=== PATIENT | female | born 1970 | race Caucasian/White ===

== ENCOUNTER 2018-03-28 14:25 | Outpatient (REF) | payer BC, SELFPAY ==
--- NOTE | 2018-03-28 14:00 | PAPFT_PTH ---
PATIENT: Pascale Yost LOC: [facility] U#:[id number] AGE/SX: 47/F ROOM: RE03/28/[address]: PRISCILLA Sellers : 1970 BED: DIS: 03/28/2018 SPEC #: [id number] RECD: 03/28/18 18:18 STATUS: ZULY REQ #: [id number] DARWIN: 03/28/18 14:[address]: Mariia Reina DEPT: [facility]LY [facility], [facility] Cytology RECD BY: Taniya Kovacs ENTERED: 03/28/18 18:18 SP TYPE: PAPFT OTHR DR: Marco Lazcano Tissues: 1 - CX/ENDOCX FOR PAP SMEARS Procedures: PAP THIN PREP/[facility] Screening HPV DNA PROBE Comments: [id number]
== END 2018-03-28 14:45 ==
LOC: LBN 14:25
PROVIDERS: PCP Internal Medicine; Visit Provider Nurse Practitioner Family
DX: Z12.4 Encounter for screening for malignant neoplasm of cervix (principal); Z11.51 Encounter for screening for human papillomavirus (HPV)
CPT/HCPCS: 88142; 87624

== ENCOUNTER 2019-02-10 18:11 | Outpatient (REF) | payer BC, SELFPAY ==
[2019-02-10 22:07] LABS: Calculated LDL 126 mg/dL; Cholesterol 224 mg/dL (50-200); HDL Cholesterol 86 mg/dL (40-60); Triglyceride 64 mg/dL (30-150)
== END 2019-02-10 18:31 ==
LOC: NCHCN 18:11
PROVIDERS: PCP Internal Medicine; Visit Provider Registered Nurse
DX: Z13.220 Encounter for screening for lipoid disorders (principal)
CPT/HCPCS: 80061

== ENCOUNTER 2019-12-24 12:08 | Outpatient (REF) | payer SELFPAY ==
[2019-12-24 20:23] LABS: Abs Immature Grans 0.02 10^3/uL (0.0-0.06); Absolute Basophil Count 0.04 10^3/uL (0.0-0.2); Absolute Eosinophil Count 0.19 10^3/uL (0.0-0.7); Absolute Lymphocyte Count 2.48 10^3/uL (1.2-3.4); Absolute Monocyte Count 0.39 10^3/uL (0.1-0.8); Absolute Neutrophil Count 4.21 10^3/uL (1.2-6.7); Basophils % 0.5; Eosinophils % 2.6; HCT 41.9 % (36.0-46.0); HGB 13.4 g/dL (11.2-15.7); Immature Grans % 0.3; Lymphocytes % 33.8; MCH 30.7 pg (27.0-33.0); MCV 95.9 fL (80-95); MPV 10.8 fL (8.0-11.0); Monocytes % 5.3; Neutrophils % 57.5; Nucleated RBC 0 %; Platelet Count 199 10^3/uL (130-400); RBC 4.37 10^6/uL (3.93-5.22); RDW 12.5 % (11.7-14.6); RDW-SD 44.1 fL; WBC 7.33 10^3/uL (4.4-10.8)
[2019-12-24 20:41] LABS: ALT 29 U/L (14-59); AST 16 U/L (15-37); Albumin 4.1 g/dL (3.4-5.0); Alkaline Phosphatase 65 U/L (46-116); Anion Gap 5.1 mmol/L (3-11); BUN 12 mg/dL (7-18); Bilirubin, Total 0.5 mg/dL (0.2-1.0); CO2 32.9 mmol/L (21.0-32.0); Calcium 9.3 mg/dL (8.5-10.1); Chloride 102 mmol/L (98-107); Glucose 84 mg/dL (74-106); Potassium 4.2 mmol/L (3.5-5.1); Sodium 140 mmol/L (136-145)
== END 2019-12-24 12:28 ==
LOC: LBN 12:08
PROVIDERS: PCP Internal Medicine; Visit Provider Internal Medicine Hematology
DX: C82.90 Follicular lymphoma, unspecified, unspecified site (principal)
CPT/HCPCS: 80053; 85025

== ENCOUNTER 2023-07-27 17:59 | Outpatient (REF) | payer BC, SELFPAY ==
--- NOTE | 2023-07-27 15:00 | PAPFT_PTH ---
PATIENT: Pascale Yost LOC: [facility]#:[id number] AGE/SX: 52/F ROOM: RE07/27/[address]: BRANDON: 1970 BED: DIS: 07/27/2023 SPEC #: [id number] RECD: 07/30/23 18:00 STATUS: ZULY MASSEY #: [id number] DARWIN: 07/27/23 15:[address]: Bianca Miller DEPT: [facility] Cytology RECD BY: Taniya Kovacs ENTERED: 07/30/23 18:01 SP TYPE: PAPFT OTHR DR: Marco Lazcano Tissues: 1 - CX/ENDOCX FOR PAP SMEARS Procedures: PAP THIN PREP/[facility] Screening HPV DNA PROBE Comments: [id number]
[2023-07-27 21:44] LABS: Hemoglobin A1C 5.5 % (<5.7)
[2023-07-27 21:52] LABS: ALT 27 U/L (14-59); AST 17 U/L (15-37); Albumin 4.1 g/dL (3.4-5.0); Alkaline Phosphatase 71 U/L (46-116); Anion Gap 7.7 mmol/L (3-11); BUN 27 mg/dL (7-18); Bilirubin, Total 0.3 mg/dL (0.2-1.0); CO2 30.3 mmol/L (21.0-32.0); CREATININE 1.3 mg/dL (0.55-1.02); Calcium 9.2 mg/dL (8.5-10.1); Calculated LDL 126 mg/dL (<100); Chloride 103 mmol/L (98-107); Cholesterol 223 mg/dL (<200); Estimated GFR 49.48 (mL/min/1.73m2); Glucose 100 mg/dL (74-106); HDL Cholesterol 87 mg/dL (40-60); Potassium 4.4 mmol/L (3.5-5.1); Sodium 141 mmol/L (136-145); TSH (W/Ref FT4) 2.33 uIU/mL (0.36-3.74); Total Protein 7.6 g/dL (6.4-8.2); Triglyceride 53 mg/dL (<150)
[2023-07-27 22:23] LABS: FREE T4 0.95 ng/dL (0.76-1.46)
== END 2023-07-27 18:00 | disposition home or self-care (01) ==
LOC: NCHCN 17:59
PROVIDERS: PCP Internal Medicine; Visit Provider Family Medicine
DX: Z00.00 Encounter for general adult medical examination without abnormal findings (principal); Z12.4 Encounter for screening for malignant neoplasm of cervix
CPT/HCPCS: 80053; 80061; 88142; 83036; 84439; 84443; 87624